=== PATIENT | female | born 1960 | race Caucasian/White ===

== ENCOUNTER 2021-04-21 00:41 | Day surgery (SDC) | payer OTHER, SELFPAY ==
[2021-04-14 15:18] VITALS: BMI 21.5
--- NOTE | 2021-04-14 15:37 | PC.NURSE ---
Report to the Outpatient Waiting Room, entrance under the green pavilion located off [facility], at time ___729____ on date __04/21/2021 . OR Time: . - You and your visitor will be asked a series of questions to screen for COVID 19 for your protection. - A mask is required within the hospital. Preoperative COVID Testing Requirements: VACCINATED-NO TESTING NEEDED No COVID Test needed if: (proof is required; if not received patient will have Rapid Test prior to entry) - Patient has received COVID Vaccine at least 14 days prior to procedure date or - Patient has positive COVID test result within last 90 days of surgery date. COVID Test needed if above criteria is not met If not COVID vaccinated a COVID test must be conducted within 72 hours of surgery and patient is asked to isolate self from time of testing until procedure. You will go to the [facility] for your COVID testing. The [facility] is located at the corner of [address] [facility]. You will only be called if COVID results are positive and your surgeon may reschedule your elective surgery date. Patients may have clear liquids (water, carbonated beverages, clear teas, apple juice) until 3 hours prior to surgery with a maximum of 20 ounces. - No food from midnight until time of surgery - Infants may have breast milk until 4 hours before surgery, infant formula 6 hours prior to surgery. - Children will be allowed to drink immediately following surgery. If applicable, please bring a bottle or sippy cup to assist with drinking. Juice, water, soda, and popsicles are readily available. For infants on formula, please bring formula the day of surgery. Pacifiers are allowed. Take the following medications with a SIP of water the morning of surgery: ___N/A Medications to discontinue per physician SUPPLEMENTS/VITAMINS 3 DAYS PRIOR Date to take last dose Please no make-up, nail uzbek, hairspray, perfume, deodorant, or body powder the day of surgery. No jewelry (including any body piercings) or valuables the day of surgery, leave them at home. Please take a shower or bath the night before, or the morning of, surgery with an antibacterial soap. Wear comfortable, loose fitting clothing. Children are encouraged to wear pajamas. - Jewelry must be removed prior to entering the operating room. Rings and piercings that are not removed may be cut off. - The hospital will not accept responsibility for valuables. - Please leave all valuables, including medications, at home the day of surgery. If you are going home after surgery, a licensed cdl b driver must drive you home. - NO public transportation without another adult. - We recommend that an adult stay with you for 24 hours following discharge. - We also recommend that you do not drive, make important decision, drink alcoholic beverages, or take any drugs that were not prescribed by your health care provider for at least 24 hours after your discharge time. For Pediatric surgeries, we recommend two adults accompany the child home (only one inside the building at this time). One visitor will be allowed to accompany the patient into the hospital. Patients visitor will be instructed to remain with patient at all times or leave the building. We will allow the visitor to come back to the postoperative area when patient is ready. Follow any additional instructions given to you from your surgeon. Telephone instructions given to patient____and asked if any additional questions and then verbalized understanding. Patient advised to call surgeon office or pre surgery nurse liaison [phone] if any additional questions.
--- NOTE | 2021-04-21 07:17 | WPDHPUPDATE1 ---
History and Physical Update Update Date/Time: 04/21/21 07:17 History and Physical has been reviewed, including an updated exam of the patient. There are NO changes in the patient's condition. Risks, benefits, and alternatives have been discussed and questions answered. Patient agrees to proceed with procedure.
--- NOTE | 2021-04-21 09:13 | WPDANESEPPF ---
Anes - Initial Pre Proc Eval Procedure: Operation Date: 04/21/21 11:30 Proposed Procedures p Excision of Squamous Cell Carcinoma Right Mid Pretibia with Frozen Section, Possible Full Thickness Skin Graft - Ralph Fisher MD Date/Time: 04/21/21 09:13 Surgeon: Ralph Fisher MD Pre Op Diagnosis: squamous cell carcinoma rt mid pretibia Patient Data Age: 60 Gender: F Height: 1.78 m Weight: 68.04 kg Allergies Allergy/AdvReac Type Severity Reaction Status Date / Time enalapril Allergy Intermediate LIP Verified 04/21/21 09:37 SWELLING cephalexin AdvReac Mild Rash Verified 04/21/21 09:37 Home Medications Medication Instructions Recorded Confirmed Type alendronate 70 mg tablet 70 mg PO WEEKLY 09/15/20 04/21/21 History exemestane 25 mg tablet 25 mg PO HS 09/15/20 04/21/21 History multivitamin 1 tablet PO DAILY 09/15/20 04/21/21 History aspirin [Adult Low Dose Aspirin] 81 mg PO QMWF 04/14/21 04/21/21 History biotin 5,000 mcg SUBLINGUAL DAILY 04/14/21 04/21/21 History Patient hx anesthesia problems: none Family hx anesthesia problems: none Results Review: All pre-operative results and documents have been reviewed as part of the pre-operative evaluation. [facility] Past Medical History Medical History (Updated 04/21/21 @ 09:14 by Emil Breaux DO) DVT (deep venous thrombosis) Family history of breast cancer Diagnosed age 55, hormone driven Osteopenia Vaginal delivery x2 Surgical History Surgical History History of colon surgery reconstruction due to problem with ablation History of endometrial ablation History of foot surgery left foot x2 History of hysterectomy non intentional removal History of mastectomy 2016, double mastectomy History of tonsillectomy Family History Family History Mother Hypertension Heart problem Cerebrovascular accident Sibling Lung cancer Throat cancer Social History Social History Smoking packs per day: 2 Smoking cigarettes per day: 40.0 Years smoked: 7 Smoking pack-years: 14.00 Smoking status: Former smoker Tobacco type: cigarettes Second hand tobacco smoke exposure: Yes Smoking end date: 06/19/81 Alcohol intake: current Drinks per week: 5 Alcohol use details: BEER OR WINE Substance use: never Living arrangements: with family Spiritual care concerns: No Anes - Eval Final PreProcedure Day of Procedure 04/21/21 09:13 Patient weight: normal Heart: regular rate and rhythm Lungs: clear to auscultation and normal air movement Airway: Mallampati scale class II Neurological: alert and oriented Last oral intake: >/= 8 hours ASA classification: III Emergent: no Anesthetic plan: proceed Anesthesia type and monitoring: general GIVS and standard monitoring Results Review: All pre-operative results and documents have been reviewed as part of the pre-operative evaluation. Informed Consent: The patient's anesthetic plan and its attendant risks and benefits were discussed with the patient/family/POA. Questions were solicited and answers provided to the satisfaction of the patient/family/POA.
[2021-04-21] MEDS: LACTATED RINGERS 1,000 ML 30 ML IV CONT (10:00)
[2021-04-21 10:09] VITALS: BP 142/98; PULSE 71; RESP 16; TEMP 36.3; O2SAT 100
[2021-04-21 13:31] VITALS: BP 113/73; PULSE 70; RESP 14; O2SAT 99
--- NOTE | 2021-04-21 13:46 | P.OP_ITS ---
Procedure Note - Detailed Date of Procedure 04/21/21 Pre-op Diagnosis squamous cell carcinoma rt mid pretibia Post-op Diagnosis Same Procedure Performed 2 cm excision of squamous cell carcinoma of the right pre tibia with frozen section and complex repair 4 cm Surgeon Ralph Fisher MD Freezing Room Worker Chhaya EM Description of Procedure The site on the patient's right leg was marked in the holding area. She was taken to the operating where she was placed supine on the operating table. A time-out was held and confirmed. She was given general anesthesia. The extremity was prepped and draped in usual fashion. The site was carefully marked for excision to surround the biopsy site by approximately 5 mm. This area was infiltrated with 1% lidocaine with epinephrine. The full-thickness skin ellipse was taken down to the subcutaneous tissue and specimen taken off. The suture was placed on this at the 12:00 p.m. superior aspect and sent to frozen section. The pathologist reported that the diagnosis was correct and that the margins were free of tumor. The patient has excellent quality soft tissue in this area near the tibial margin. This was undermined more than a cm in that direction and more than 2 cm in all other directions. This allowed advancement of the medial soft tissue to close the wound. Retention was done with 2-0 intradermal Vicryl sutures at multiple sites. No standing cones were removed. The skin was closed with a running 4 0 nylon. The wound was dressed with Xeroform gauze and Tegaderm. She is discharged home with instructions in wound care and follow-up and a prescription for hydrocodone 5/325 number 5 Estimated Blood Loss 1 Tourniquet Time 0 Drains No Packing No Pathology Yes Condition Stable Disposition PACU
[2021-04-21 14:00] VITALS: BP 108/75; PULSE 60; RESP 14; O2SAT 97
[2021-04-21 14:30] VITALS: BP 130/82; PULSE 55; RESP 16; O2SAT 97
== END 2021-04-21 14:40 | disposition home or self-care (01) ==
PROVIDERS: PCP Internal Medicine; Visit Provider Plastic Surgery
PROC: (CPT 11602; principal; 2021-04-21 11:30)
DX: C44.722 Squamous cell carcinoma of skin of right lower limb, including hip (principal); Z86.718 Personal history of other venous thrombosis and embolism; Z79.82 Long term (current) use of aspirin; Z85.3 Personal history of malignant neoplasm of breast; Z87.891 Personal history of nicotine dependence
CPT/HCPCS: 11602; 13121; 88305; 88331; 88332; A9270; J2250; J2270; J2405; J2704; J7120